=== PATIENT | male | born 1945 | race Caucasian/White ===

== ENCOUNTER 2019-05-18 11:53 | Inpatient (IN) ==
--- NOTE | 2019-05-18 12:08 | Emergency Department Note ---
Entered by Alisha Ga acting as a scribe for Chano Davis DO History of Present Illness General Chief complaint: Seizure Stated complaint: SYNCOPE, POSSIBLE SEIZURE Source: patient and family (son) History of Present Illness Onset (ago): hour(s) (just prior to arrival) Location: head (general) Pain Consistency: + other (episode) Quality: + other (unresponsiveness) Relieved By: + none Exacerbated By: + none Associated symptoms: + other (negative change in vision; negative diarrhea; negative numbness in arms or legs ); no chest pain, no fever/chills, no headaches, no nausea/vomiting, no shortness of breath and no weakness The patient is a 73-year-old male with a past medical history of diabetes, hypertension, hyperlipidemia and seizure that presents the ER for an episode of unresponsiveness that began just prior to arrival. He was sitting in the passenger seat and his son was driving when he started yelling and his whole body became tense and this lasted for about 2 minutes. He was feeling completely fine before hand. When he woke up from this he was slightly confused. His son called EMS. Upon arrival of the medics he became unresponsive again for about 45 seconds. Son notes that he is still a little confused. Patient complains of some persistent left-sided tongue pain as he believes he bit his tongue. He did have a headache before hand but that has resolved. Patient denies any headache, change in vision, fevers, chest pain, shortness of breath, nausea, vomiting, diarrhea. No other exacerbating or remitting factors. No weakness or numbness in his arms or legs. Home Medications Home Medications Medication Instructions Recorded Confirmed Type aspirin [Aspirin Low Dose] 81 mg PO DAILY 05/18/19 05/18/19 History glucos sul [id number] 0 cap PO BID 05/18/19 05/18/19 History [Glucosamine Chondroitin] lisinopril-hydrochlorothiazide 1 tab PO DAILY 05/18/19 05/18/19 History metformin 500 mg PO BID 05/18/19 05/18/19 History omeprazole 20 mg PO BID 05/18/19 05/18/19 History ropinirole 5 mg PO DIRECTED 05/18/19 05/18/19 History simvastatin 80 mg PO HS 05/18/19 05/18/19 History Allergies Allergy/AdvReac Type Severity Reaction Status Date / Time No Known Allergies Allergy Unverified 05/18/19 13:13 Past Med/Surg History Medical History Diabetes Hyperlipidemia Hypertension Seizure Family History (Updated 05/18/19 @ 13:10 by Alisha Ga) Other No pertinent family history in first degree relatives Social History Preferred Language: German Communication Ability: Effective Ratoprinter Required: No Beliefs That Will Affect Care: None Current Living Situation: Spouse Other Information That Helps Us Care for You: No Feels Safe at Home: Yes Safety Concerns: Feels Safe At This Time Smoking Status: Former smoker Do You Dip or Chew Tobacco: No ; Second Hand Exposure: No ; Tobacco Cessation Education Requested by Patient: No Hx Alcohol Use: Yes Alcohol type: beer Hx Substance Use: No Review of Systems See HPI for pertinent positives & negatives. and A total of 10 systems reviewed and were otherwise negative Physical Exam Vital Signs Vital Signs - 24 hr 05/18/19 11:53 05/18/19 12:00 05/18/19 12:04 Temperature 36.9 C Temperature Source Oral Pulse Rate 90 94 H 90 Pulse Rate from SpO2 Sensor 86 Pulse Strength Normal Respiratory Rate 21 16 20 Respiratory Effort / Characteristics Non-Labored Respiratory Depth Normal Blood Pressure 175/101 H 175/101 H 159/91 H Blood Pressure Mean 125 117 121 Pulse Oximetry 96 94 Oxygen Delivery Method Room Air Sepsis Recent Fever Within 48 Hours No Sepsis Action Taken by Nursing No Action Required 05/18/19 12:06 05/18/19 12:10 05/18/19 12:16 Temperature Temperature Source Pulse Rate 91 H 82 88 Pulse Rate from SpO2 Sensor 92 H 87 Pulse Strength Respiratory Rate 14 18 Respiratory Effort / Characteristics Respiratory Depth Blood Pressure Blood Pressure Mean Pulse Oximetry 96 95 96 Oxygen Delivery Method Room Air Sepsis Recent Fever Within 48 Hours Sepsis Action Taken by Nursing 05/18/19 12:21 05/18/19 12:28 05/18/19 12:30 Temperature Temperature Source Pulse Rate 85 82 84 Pulse Rate from SpO2 Sensor 82 81 82 Pulse Strength Respiratory Rate 17 22 15 Respiratory Effort / Characteristics Respiratory Depth Blood Pressure 146/89 H Blood Pressure Mean 112 Pulse Oximetry 96 94 97 Oxygen Delivery Method Sepsis Recent Fever Within 48 Hours Sepsis Action Taken by Nursing 05/18/19 12:43 05/18/19 12:51 05/18/19 13:00 Temperature Temperature Source Pulse Rate 85 81 84 Pulse Rate from SpO2 Sensor 84 83 85 Pulse Strength Respiratory Rate 20 20 17 Respiratory Effort / Characteristics Respiratory Depth Blood Pressure 147/84 H Blood Pressure Mean 96 Pulse Oximetry 97 95 96 Oxygen Delivery Method Sepsis Recent Fever Within 48 Hours Sepsis Action Taken by Nursing 05/18/19 13:10 Temperature Temperature Source Pulse Rate 78 Pulse Rate from SpO2 Sensor 72 Pulse Strength Respiratory Rate 17 Respiratory Effort / Characteristics Respiratory Depth Blood Pressure Blood Pressure Mean Pulse Oximetry 95 Oxygen Delivery Method Sepsis Recent Fever Within 48 Hours Sepsis Action Taken by Nursing GENERAL: Sitting up in bed, alert, disheveled wearing jeans without a shirt EYE EXAM: normal conjunctiva. PERRL and EOM's grossly intact. OROPHARYNX: no exudate, no erythema, lips, buccal mucosa, and tongue normal and mucous membranes are moist NECK: supple, no nuchal rigidity, no adenopathy, non-tender LUNGS: Clear to auscultation. Normal chest wall mechanics HEART: no murmurs, S1 normal and S2 normal ABDOMEN: abdomen soft, non-tender, normo-active bowel sounds, no masses, no rebound or guarding. BACK: Back is symmetrical on inspection and there is no deformity, no midline tenderness, no CVA tenderness. SKIN: no rashes and no bruising UPPER EXTREMITIES: upper extremities are grossly normal. LOWER EXTREMITIES: No pitting edema. NEURO EXAM: Oriented to person, place but not year, cranial nerves II-XII intact, normal speech, no weakness of arms, no weakness of legs. No drift. Finger to nose intact. Gross sensation intact. Course Course ED COURSE: Vital signs were reviewed and showed hypertension. The patients medical record was reviewed The above diagnostic studies were performed and reviewed. ED treatments and interventions as stated above. 1158: The patient was evaluated in room B3B. A complete history and physical examination was performed. 1304: Upon reevaluation, the patient is resting comfortably and feeling better. .I discussed my findings with the patient and he understands and agrees with the treatment plan. Based on the patients age, coexisting illnesses, exam and lab findings the decision to treat as an inpatient was made. The patient remained stable while under my care. 1309: The patient will be evaluated for further management by [facility] Hospitalist who accepts the patient under his service. Administered Medications Gadobutrol (Gadavist 65ml) 10 ml IV ONCE PRN PRN Reason: Interaction Checking Stop: 05/22/19 17:40 Last Admin: 05/18/19 17:41 Dose: 10 ml Documented by: [id number] Sodium Chloride (Nss 1000ml) 1,000 mls @ 75 mls/hr IV .[id number] ELSY Stop: 06/17/19 16:10 Last Admin: 05/18/19 16:17 Dose: 75 mls/hr Documented by: [id number] Insulin Aspart (Novolog Flexpen) 0 units SC ACHS ELSY Stop: 06/17/19 16:29 Last Admin: 05/18/19 18:26 Dose: Not Given Documented by: [id number] Discontinued Medications Sodium Chloride (Nss 1000ml) 1,000 mls @ 999 mls/hr IV .[id number] ELSY Stop: 05/18/19 13:15 Last Infusion: 05/18/19 13:22 Dose: 0 mls/hr Documented by: [id number] Admin: 05/18/19 12:19 Dose: 999 mls/hr Documented by: [id number] Levetiracetam 1,000 mg/ (Dextrose) 110 mls @ 440 mls/hr IV NOW STA Stop: 05/18/19 13:18 Last Infusion: 05/18/19 13:40 Dose: 0 mls/hr Documented by: [id number] Admin: 05/18/19 13:25 Dose: 440 mls/hr Documented by: [id number] Potassium Chloride (Klor-Con M20) 20 meq PO NOW STA Stop: 05/18/19 14:47 Last Admin: 05/18/19 15:00 Dose: 20 meq Documented by: [id number] Medical Decision Making Differential Diagnosis Differential diagnosis includes etiologies such as infection, hypoglycemia, electrolyte abnormalities, cardiac sources, intracerebral event, trauma, toxicologic, neurologic, as well as others were entertained. Medical Records Attestation: I reviewed the patient's medical records. Home Medications Current Medication List: was personally reviewed by me Laboratory Data Attestation: I reviewed the patient's lab results. Result diagrams: 05/18/19 12:28 05/18/19 12:28 Lab Results 05/18/19 05/18/19 05/18/19 Range/Units 12:28 12:28 12:28 WBC 6.30 (4.8-10.8) K/uL RBC 4.32 L (4.7-6.1) M/uL Hgb 13.6 L (14.0-18.0) g/dL Hct 38.9 L (42-52) % MCV 90.0 (80-100) fL MCH 31.5 (25-34) pg MCHC 35.0 (32-36) g/dL RDW Std Deviation 40.3 (36.4-46.3) fL RDW Coeff of Thee 12.3 (11.5-14.5) % Plt Count 141 (130-400) K/uL MPV 10.6 H (7.4-10.4) fL Immature Gran % (Auto) 0.6 % Neut % (Auto) 70.9 % Lymph % (Auto) 18.7 % [place] % (Auto) 7.5 % Eos % (Auto) 1.7 % Baso % (Auto) 0.6 % Immature Gran # (Auto) 0.04 H (0.00-0.02) K/uL Neut # (Auto) 4.46 (1.4-6.5) K/uL Lymph # (Auto) 1.18 L (1.2-3.4) K/uL [place] # (Auto) 0.47 (0.11-0.59) K/uL Eos # (Auto) 0.11 (0-0.5) K/uL Baso # (Auto) 0.04 (0-0.2) K/uL Sodium 140 (136-145) mmol/L Potassium 3.4 L (3.5-5.1) mmol/L Chloride 106 (98-107) mmol/L Carbon Dioxide 27 (21-32) mmol/L Anion Gap 7.0 (3-11) BUN 17 (7-18) mg/dl Creatinine 1.04 (0.6-1.4) mg/dl Est Cr Clr Drug Dosing Not Reportable Est GFR ( Amer) 83.3 Est GFR (Non-Af Amer) 71.9 BUN/Creatinine Ratio 16.1 (10-20) Glucose 132 H (70-99) mg/dl Calcium 8.8 (8.5-10.1) mg/dl Magnesium 2.1 (1.8-2.4) mg/dl Total Bilirubin 0.5 (0.2-1) mg/dl AST 23 (15-37) U/L ALT 37 (12-78) U/L Alkaline Phosphatase 81 (45-117) U/L Troponin I < 0.015 (0-0.045) ng/ml Total Protein 6.9 (6.4-8.2) gm/dl Albumin 3.7 (3.4-5.0) gm/dl Globulin 3.2 (2.5-4.0) gm/dl Albumin/Globulin Ratio 1.2 (0.9-2) Urine Color Urine Appearance (Clear) Urine pH (4.5-7.5) Ur Specific [place] (1.000-1.030) Urine Protein (Negative) Urine Glucose (UA) (Negative) Urine Ketones (Negative) Urine Blood (Negative) Urine Nitrite (Negative) Urine Bilirubin (Negative) Urine Urobilinogen (Negative) Ur Leukocyte Esterase (Negative) Urine WBC (Auto) (0-5) /hpf Urine RBC (Auto) (0-4) /hpf U Hyaline Cast (Auto) (0-5) /lpf U Epithel Cells (Auto) (0-5) /lpf Urine Bacteria (Auto) (Negative) Urine Opiates Screen (Neg) Ur Methadone, Qual (Neg) Urine Barbiturates (Neg) Ur Phencyclidine (PCP) (Neg) U Amphetamin/Meth Scrn (Neg) MDMA (Ecstasy) Screen (Neg) U Benzodiazepines Scrn (Neg) Ur Cocaine Metabolite (Neg) U Marijuana (THC) Screen (Neg) 05/18/19 05/18/19 Range/Units 12:29 12:29 WBC (4.8-10.8) K/uL RBC (4.7-6.1) M/uL Hgb (14.0-18.0) g/dL Hct (42-52) % MCV (80-100) fL MCH (25-34) pg MCHC (32-36) g/dL RDW Std Deviation (36.4-46.3) fL RDW Coeff of Thee (11.5-14.5) % Plt Count (130-400) K/uL MPV (7.4-10.4) fL Immature Gran % (Auto) % Neut % (Auto) % Lymph % (Auto) % [place] % (Auto) % Eos % (Auto) % Baso % (Auto) % Immature Gran # (Auto) (0.00-0.02) K/uL Neut # (Auto) (1.4-6.5) K/uL Lymph # (Auto) (1.2-3.4) K/uL [place] # (Auto) (0.11-0.59) K/uL Eos # (Auto) (0-0.5) K/uL Baso # (Auto) (0-0.2) K/uL Sodium (136-145) mmol/L Potassium (3.5-5.1) mmol/L Chloride (98-107) mmol/L Carbon Dioxide (21-32) mmol/L Anion Gap (3-11) BUN (7-18) mg/dl Creatinine (0.6-1.4) mg/dl Est Cr Clr Drug Dosing Est GFR ( Amer) Est GFR (Non-Af Amer) BUN/Creatinine Ratio (10-20) Glucose (70-99) mg/dl Calcium (8.5-10.1) mg/dl Magnesium (1.8-2.4) mg/dl Total Bilirubin (0.2-1) mg/dl AST (15-37) U/L ALT (12-78) U/L Alkaline Phosphatase (45-117) U/L Troponin I (0-0.045) ng/ml Total Protein (6.4-8.2) gm/dl Albumin (3.4-5.0) gm/dl Globulin (2.5-4.0) gm/dl Albumin/Globulin Ratio (0.9-2) Urine Color Yellow Urine Appearance Clear (Clear) Urine pH 7.0 (4.5-7.5) Ur Specific [place] 1.012 (1.000-1.030) Urine Protein Trace H (Negative) Urine Glucose (UA) Negative (Negative) Urine Ketones Negative (Negative) Urine Blood Negative (Negative) Urine Nitrite Negative (Negative) Urine Bilirubin Negative (Negative) Urine Urobilinogen Negative (Negative) Ur Leukocyte Esterase Negative (Negative) Urine WBC (Auto) 1-5 (0-5) /hpf Urine RBC (Auto) 0-4 (0-4) /hpf U Hyaline Cast (Auto) 1-5 (0-5) /lpf U Epithel Cells (Auto) 10-20 H (0-5) /lpf Urine Bacteria (Auto) Negative (Negative) Urine Opiates Screen Neg (Neg) Ur Methadone, Qual Neg (Neg) Urine Barbiturates Neg (Neg) Ur Phencyclidine (PCP) Neg (Neg) U Amphetamin/Meth Scrn Neg (Neg) MDMA (Ecstasy) Screen Neg (Neg) U Benzodiazepines Scrn Neg (Neg) Ur Cocaine Metabolite Neg (Neg) U Marijuana (THC) Screen Neg (Neg) Imaging Data Radiologist's Impression: Radiology results as stated below per my review and the radiologist's interpretation: SINGLE VIEW CHEST CLINICAL HISTORY: Syncope. FINDINGS: An AP, portable, upright chest radiograph is obtained. No prior studies are available for comparison at the time of dictation. The examination is degraded by portable technique, apical lordotic positioning, and patient rotation. The heart is mildly enlarged. The pulmonary vasculature is noncongested. There is mild elevation of right hemidiaphragm and bibasilar atelectasis. No airspace consolidation, large pleural effusion, or pneumothorax is seen. The skeletal structures are osteopenic. The bony thorax is grossly intact. IMPRESSION: Mild cardiac enlargement with no acute cardiopulmonary abnormality. Electronically signed by: Maximino Cheung M.D. 05/18/2019 12:[address] SCAN OF THE BRAIN WITHOUT IV CONTRAST CLINICAL HISTORY: Headache. Dizziness. COMPARISON STUDY: No priors. TECHNIQUE: Unenhanced axial CT scan of the brain is performed from the vertex to the skull base. A dose lowering technique was utilized adhering to the principles of ALARA. CT DOSE: 537.48 mGy.cm FINDINGS: Brain parenchyma: There are age-related involutional changes noting mild subcortical and periventricular microangiopathic change. There is no hemorrhage, mass effect, or evidence of acute territorial ischemia by CT criteria. Lugo- white matter differentiation is preserved. No extra-axial fluid collection is seen. Ventricles, sulci, cisterns: Prominent secondary to involutional change. Intracranial vasculature: There is atherosclerotic calcification of the cavernous carotid and vertebral arteries. Calvarium: Unremarkable. Sinuses and mastoids: The visualized paranasal sinuses are clear. The mastoid air cells are well pneumatized. Orbits: The bony orbits are grossly intact. There is a right ocular lens impla nt. IMPRESSION: There is no hemorrhage, mass effect, or evidence of acute territorial ischemia by CT criteria. Electronically signed by: Maximino Cheung M.D. 05/18/2019 12:42 PM ECG Data Attestation: I personally reviewed and interpreted this ECG as follows: Indication: + other (seizure ) Rate (beats per minute): 90 Rhythm: + sinus rhythm ECG Intervals/blocks: + Normal QT ECG Goodell: + Normal ECG Findings: + Other (poor baseline); no PVCs Blood Pressure Blood Pressure Findings: Elevated blood pressure Blood Pressure Disposition: further management by hospitalist MDM Narrative Patient is a 73-year-old male who presents the ER for 2 episodes of unresponsiveness. They were driving in the car and his son noticed him shaking/tense and screaming in the passenger seat. Patient was awake alert talking when EMS arrived and became unresponsive again. IV was established blood work was obtained. Labs show no significant leukocytosis or anemia. BMP with mild hypokalemia. LFTs bilirubin and troponin were unremarkable. EKG was nondiagnostic. Chest x-ray was unremarkable. CT head was negative. Patient has a remote history of one previous seizure about 8 to 10 years ago but was never placed on medications. His neurologic exam is completely intact. He is not oriented to year but family notes this is his baseline. Patient was given a loading dose of Keppra discussed with the hospitalist for observation due to 2 seizures under 24 hours. Patient was updated at bedside along with his sons and discussed with the hospitalist for observation. Impression & Plan Seizure, Hypokalemia, HTN (hypertension) Discharge Plan Visit Data *Final* Discharge Date/Time: 05/18/19 15:19 Chief Complaint: Seizure Stated Complaint: SYNCOPE, POSSIBLE SEIZURE ED Provider: Chano Davis Discharge Problem: Seizure, Hypokalemia, HTN (hypertension) Patient Disposition: Admitted As Inpatient Discharge Instructions Interventions: ED Discharge Assessment Last Done: 05/18/19 15:19 Discharge Problem: HTN (hypertension) Qualifiers: Hypertension type: unspecified Qualified Code(s): I10 - Essential (primary) hypertension The scribe's documentation has been prepared under my direction and personally reviewed by me in its entirety. I confirm that the note above accurately reflects all work, treatment, procedures, and medical decision making performed by me.
[2019-05-18] MEDS ORDERED: SODIUM CHLORIDE 0.9% 1000ML 1,000 ML IV SCH (12:15)
[2019-05-18 12:37] LABS: Basophils # (auto) 0.04 K/uL (0-0.2); Basophils % (auto) 0.6 %; Eosinophils # (auto) 0.11 K/uL (0-0.5); Eosinophils % (auto) 1.7 %; Hematocrit (blood only) 38.9 % (42-52); Hemoglobin 13.6 g/dL (14.0-18.0); Immature Granulocytes # (auto) 0.04 K/uL (0.00-0.02); Immature Granulocytes % (auto) 0.6 %; Lymphocytes # (auto) 1.18 K/uL (1.2-3.4); Lymphocytes % (auto) 18.7 %; Mean Corpuscular Hemoglobin 31.5 pg (25-34); Mean Platelet Volume 10.6 fL (7.4-10.4); Monocytes # (auto) 0.47 K/uL (0.11-0.59); Monocytes % (auto) 7.5 %; Neutrophils # (auto) 4.46 K/uL (1.4-6.5); Neutrophils % (auto) 70.9 %; Platelet Count 141 K/uL (130-400); RDW Coefficient of Variation 12.3 % (11.5-14.5); RDW Standard Deviation 40.3 fL (36.4-46.3); Red Blood Count 4.32 M/uL (4.7-6.1)
--- NOTE | 2019-05-18 12:44 | CT Scan Report ---
CT SCAN OF THE BRAIN WITHOUT IV CONTRAST CLINICAL HISTORY: Headache. Dizziness. COMPARISON STUDY: No priors. TECHNIQUE: Unenhanced axial CT scan of the brain is performed from the vertex to the skull base. A do se lowering technique was utilized adhering to the principles of ALARA. CT DOSE: 537.48 mGy.cm FINDINGS: Brain parenchyma: There are age-related involutional changes noting mild subcortical and periventric ular microangiopathic change. There is no hemorrhage, mass effect, or evidence of acute territorial i schemia by CT criteria. Lugo-white matter differentiation is preserved. No extra-axial fluid collecti on is seen. Ventricles, sulci, cisterns: Prominent secondary to involutional change. Intracranial vasculature: There is atherosclerotic calcification of the cavernous carotid and vertebr al arteries. Calvarium: Unremarkable. Sinuses and mastoids: The visualized paranasal sinuses are clear. The mastoid air cells are well pneu matized. Orbits: The bony orbits are grossly intact. There is a right ocular lens implant. IMPRESSION: There is no hemorrhage, mass effect, or evidence of acute territorial ischemia by CT efrain olivas. Electronically signed by: Maximino Cheung M.D. 05/18/2019 12:42 PM
--- NOTE | 2019-05-18 12:50 | XRay Report ---
SINGLE VIEW CHEST CLINICAL HISTORY: Syncope. FINDINGS: An AP, portable, upright chest radiograph is obtained. No prior studies are available for c omparison at the time of dictation. The examination is degraded by portable technique, apical lordoti c positioning, and patient rotation. The heart is mildly enlarged. The pulmonary vasculature is nonco ngested. There is mild elevation of right hemidiaphragm and bibasilar atelectasis. No airspace consol idation, large pleural effusion, or pneumothorax is seen. The skeletal structures are osteopenic. The bony thorax is grossly intact. IMPRESSION: Mild cardiac enlargement with no acute cardiopulmonary abnormality. Electronically signed by: Maximino Cheung M.D. 05/18/2019 12:48 PM
[2019-05-18 12:54] LABS: Alanine Aminotransferase 37 U/L (12-78); Albumin Level 3.7 gm/dl (3.4-5.0); Aspartate Aminotransferase 23 U/L (15-37); BUN Creatinine Ratio 16.1 (10-20); Blood Urea Nitrogen 17 mg/dl (7-18); Calcium 8.8 mg/dl (8.5-10.1); Carbon Dioxide 27 mmol/L (21-32); Chloride 106 mmol/L (98-107); Est GFR (African American) 83.3; Est GFR (Non-African American) 71.9; Glucose 132 mg/dl (70-99); Magnesium 2.1 mg/dl (1.8-2.4); Potassium 3.4 mmol/L (3.5-5.1); Sodium 140 mmol/L (136-145)
[2019-05-18 12:57] LABS: Albumin Globulin Ratio 1.2 (0.9-2); Alkaline Phosphatase 81 U/L (45-117); Bilirubin,Total 0.5 mg/dl (0.2-1); Globulin 3.2 gm/dl (2.5-4.0); Total Protein 6.9 gm/dl (6.4-8.2)
[2019-05-18 13:41] LABS: Appearance Urine Clear (Clear); Bacteria Urine Automated Negative (Negative); Bilirubin Urine Negative (Negative); Blood Urine Negative (Negative); Color Urine Yellow; Glucose Urine UA Negative (Negative); Ketones Urine Negative (Negative); Leukocyte Esterase Urine Negative (Negative); Nitrite Urine Negative (Negative); Protein Urine Trace (Negative); RBC Urine Automated 0-4 /hpf (0-4); Specific Gravity Urine 1.012 (1.000-1.030); Urobilinogen Urine Negative (Negative)
[2019-05-18 13:59] LABS: Amphetamines+Metham, Urine Neg (Neg); Barbiturates, Urine Neg (Neg); Benzodiazepine, Urine Neg (Neg); Cocaine, Urine Neg (Neg); MDMA (Ecstacy), Urine Neg (Neg); Methadone, Urine Neg (Neg); Opiate, Urine Neg (Neg); Phencyclidine, Urine Neg (Neg)
[2019-05-18] MEDS ORDERED: POTASSIUM CHLORIDE 20 MEQ TABCR PO STA (14:46)
--- NOTE | 2019-05-18 15:16 | History and Physical Report ---
DATE OF ADMISSION: 05/18/2019 CHIEF COMPLAINT: Seizures. HISTORY OF PRESENT ILLNESS: This is a 73-year-old male with history of diabetes, hypertension, hyperlipidemia, history of seizures with single episode of seizure about 8 years ago and at that time his driving license was suspended, but he was not on any medications and did not get any more seizure since then. He is from [facility]. They are going to [facility] for hunting. His grandson was driving and patient was sitting in the back of the car. His grandson heard like yawning and yelling sound, he generally does that, but it was more than usual. Seemed to be somewhat different and he looked back and he saw that his grandfather was like stiff and shaking and did not respond. The symptom lasted for couple of minutes, then after that he was confused, he called EMS and EMS came and on the way he had another episode, but shorter period of time. Now patient is back to his usual self, he is ambulating okay in the ER. Denies any headache. The patient did not felt any headache or dizziness. Denies any blurred visions. No chest pain, no shortness of breath. He gets cough on and off with phlegm. Has postnasal drip. Denies any earache, no sore throat, no difficulty swallowing. Appetite is okay. Sleeps okay. Ambulates fine. No recent weight gain or weight loss, or no night sweats. No nausea, no vomiting, no abdominal pain. Normal bowel and bladder movements. No swelling in the legs. Currently resting comfortably and hemodynamically stable. ALLERGIES: No known drug allergies. PAST MEDICAL HISTORY: As mentioned above. PAST SURGICAL HISTORY: He had cholecystectomy, tonsillectomy, carpal tunnel surgery. MEDICATIONS: Aspirin 81 mg daily, lisinopril/hydrochlorothiazide 20/25 mg p.o. daily, metformin, omeprazole 20 mg bid, ropinirole 5mg as directed., simvastatin 80 mg p.o. at bedtime. FAMILY HISTORY: Denies any significant family history. SOCIAL HISTORY: Quit smoking about 20-25 years ago. Alcohol, drinks 3 beers on and he may or may not drink another 3 beers one more day in a week. Lives with his . REVIEW OF SYMPTOMS: As per HPI. Rest of the systems negative. PHYSICAL EXAMINATION: GENERAL: The patient is alert and oriented x2, not in acute distress. VITAL SIGNS: Temperature 36.9, pulse 88, respiratory rate 21, blood pressure 175/101, oxygen 96% room air. HEENT: No pallor, no icterus. Pupils equal, round, reactive to light. Extraocular muscles intact. NECK: No JVD, no neck masses, no carotid bruits. CARDIOVASCULAR: S1, S2 heard, regular rate and rhythm, no murmur, no gallop. RESPIRATORY SYSTEM: Normal AP diameter. No accessory muscle use. No wheezing, no crackles. ABDOMEN: Soft, bowel sounds present, nontender. No distention. CENTRAL NERVOUS SYSTEM: Cranial nerves II-XII grossly intact. Power 5/5 in all extremities. No pronator drift. Coordination of movements normal. EXTREMITIES: No edema, no erythema. LABORATORY DATA: WBC 6.3, hemoglobin 13.6, hematocrit 38.9, platelets 141. Sodium 140, potassium 3.4, chloride 106, bicarbonate 27, BUN 17, creatinine 1.04, serum glucose 132, calcium 8.8, magnesium 2.1, total bilirubin 0.5, AST 23, ALT 37, alkaline phosphatase 81. Troponin I less than 0.015. Urinalysis negative. Chest x-ray, mild cardiac enlargement with no acute cardiopulmonary abnormality. CT of the head, there is no hemorrhage, mass effect, or evidence of acute territorial ischemia by CT criteria. ASSESSMENT AND PLAN: This is a 73-year-old male who presents with seizure episode. 1. Seizure episode. He had 2 episodes of seizures today. He had also episode of seizure about 8 years ago. Not on any medications. Grandson says he drinks alcohol 3 beers on and he may or may not drink one more day, so he drinks total of 3-6 beers every week, on 1 or 2 days in a week. Does not seem alcohol withdrawal. Electrolytes are okay except for potassium of 3.4, which we will replace. History of seizures about 8 years ago. In ER he was loaded with Keppra 1000 mg IV. We will continue with IV Keppra 500 b.i.d., EEG, get MRI of the head with and without contrast and also echocardiogram and carotid ultrasound. Discussed with Neurology. Monitor in the tele floor for now. IV Ativan p.r.n. for breakthrough seizures. Seizure precautions. 2. History of diabetes: Hold his metformin, place on insulin sliding scale. Follow hemoglobin A1c levels. 3. History of hyperlipidemia: Continue statin. 4. Gastroesophageal reflux disease: Continue his Protonix. 5. Hypertension: Continue his lisinopril/hydrochlorothiazide. Monitor his blood pressure. 6. Deep venous thrombosis prophylaxis, sequential compression devices for now. 7. Disposition: Admit to tele floor. Expect discharge home and follow with family doctor. No driving until seizure free for 6 months. This should be notified to DMV. Level 1 full code. MTDD
[2019-05-18] MEDS ORDERED: ONDANSETRON INJ 2 MG/ML 2 ML VIAL IV PRN (16:11)
[2019-05-18] MEDS ORDERED: POLYETHYLENE (MIRALAX) 17 GM PACK PO PRN (16:11)
[2019-05-18] MEDS ORDERED: LORazepam 1.5 MG/3 ML VIAL IV PRN (16:11)
[2019-05-18] MEDS ORDERED: NITROGLYCERIN SL 0.4 MG/TAB TAB SL PRN (16:11)
[2019-05-18] MEDS: SODIUM CHLORIDE 0.9% 1000ML 1,000 ML IV SCH (16:17)
[2019-05-18] MEDS ORDERED: GLUCOSE 10 TABS/TUBE PO PRN (16:30)
[2019-05-18] MEDS ORDERED: GLUCOSE 40% GEL 15 GM TUBE PO PRN (16:30)
[2019-05-18] MEDS ORDERED: CARBOHYDRATES FOR HYPOGLYCEMIA PO PRN (16:30)
[2019-05-18] MEDS ORDERED: GLUCAGON FOR INJ 1 MG VIAL IM PRN (16:30)
[2019-05-18] MEDS ORDERED: DEXTROSE 50% 50 ML SYRINGE IV PRN (16:30)
[2019-05-18] MEDS ORDERED: GADOBUTROL 65ML VIAL IV PRN (17:41)
--- NOTE | 2019-05-18 17:56 | Magnetic Resonance Report ---
MRI OF THE BRAIN COMBO CLINICAL HISTORY: Seizure. COMPARISON STUDY: CT of the brain dated 05/18/2019. TECHNIQUE: MRI of the brain was performed utilizing various T1 and T2-weighted sequences in the axial , sagittal, and coronal planes. Contrast-enhanced sequences were acquired following the administratio n of 10 cc of Gadavist. The examination is performed using the seizure protocol. FINDINGS: Brain parenchyma: There is age-related involutional change noting mild patchy subcortical and periven tricular microangiopathic disease. There is no hemorrhage or mass effect. Numerous prominent perivasc ular spaces are incidentally noted. There is no restricted diffusion to suggest acute ischemia. No en hancing mass lesion is identified on the postcontrast images. Lugo-white matter differentiation is pr eserved. No extra-axial fluid collection is seen. The cerebellar tonsils are normal in configuration. The hippocampi are normal and symmetric. Ventricles, sulci, and cisterns: Prominent secondary to involutional change. Pituitary and sella: Unremarkable. Intracranial vasculature: Normal flow voids are maintained at the skull base. Orbits: The bony orbits are grossly intact. Orbital contents are normal in appearance noting a right ocular lens implant. Sinuses and mastoids: Trace mucosal thickening is noted in the ethmoid sinuses. The remaining paranas al sinuses are clear. The mastoid air cells are well pneumatized. Calvarium: Unremarkable. Cervical cord: Partially visualized cervical spinal cord is normal in morphology and signal intensity . IMPRESSION: No acute intracranial abnormality. Electronically signed by: Maximino Cheung M.D. 05/18/2019 5:54 PM
[2019-05-18] MEDS: INSULIN ASPART 100 UNITS/ML 3 ML PEN SC SCH ×2 (18:26→21:11)
[2019-05-18] MEDS: ROPINIROLE HCL 5 MG TABLET PO SCH (20:13)
[2019-05-18] MEDS ORDERED: SIMVASTATIN 80 MG TAB PO SCH (21:00)
[2019-05-18] MEDS: ACETAMINOPHEN 325 MG TAB PO PRN (21:12)
[2019-05-19] MEDS: SODIUM CHLORIDE 0.9% 1000ML 1,000 ML IV SCH (05:42)
[2019-05-19 05:59] LABS: Basophils # (auto) 0.04 K/uL (0-0.2); Basophils % (auto) 0.6 %; Eosinophils # (auto) 0.09 K/uL (0-0.5); Eosinophils % (auto) 1.3 %; Hematocrit (blood only) 38.7 % (42-52); Hemoglobin 13.2 g/dL (14.0-18.0); Immature Granulocytes # (auto) 0.01 K/uL (0.00-0.02); Immature Granulocytes % (auto) 0.1 %; Lymphocytes # (auto) 1.56 K/uL (1.2-3.4); Lymphocytes % (auto) 23.1 %; Mean Corpuscular Hemoglobin 31.2 pg (25-34); Mean Corpuscular Hgb Conc 34.1 g/dL (32-36); Mean Corpuscular Volume 91.5 fL (80-100); Mean Platelet Volume 11.1 fL (7.4-10.4); Monocytes # (auto) 0.47 K/uL (0.11-0.59); Neutrophils # (auto) 4.57 K/uL (1.4-6.5); Neutrophils % (auto) 67.9 %; Platelet Count 137 K/uL (130-400); RDW Coefficient of Variation 12.6 % (11.5-14.5); RDW Standard Deviation 42.1 fL (36.4-46.3); Red Blood Count 4.23 M/uL (4.7-6.1); White Blood Count 6.74 K/uL (4.8-10.8)
[2019-05-19 06:20] LABS: BUN Creatinine Ratio 13.2 (10-20); Calcium 8.6 mg/dl (8.5-10.1); Creatinine Clr Calc Pharmacy 75.9 ml/min; Est GFR (African American) 86.3; Est GFR (Non-African American) 74.5; Magnesium 2.3 mg/dl (1.8-2.4); Potassium 3.6 mmol/L (3.5-5.1)
[2019-05-19] MEDS: INSULIN ASPART 100 UNITS/ML 3 ML PEN SC SCH ×2 (08:34→11:52)
[2019-05-19] MEDS: ROPINIROLE HCL 5 MG TABLET PO SCH (08:37)
[2019-05-19] MEDS ORDERED: PANTOprazole 40 MG TAB PO SCH (09:00)
[2019-05-19] MEDS ORDERED: ASPIRIN 81 MG ECTAB PO SCH (09:00)
[2019-05-19] MEDS ORDERED: LISINOPRIL/HCTZ 20/25MG 1 TAB PO SCH (09:00)
--- NOTE | 2019-05-19 09:01 | Hospitalist Progress Note ---
Date of Service May 19, 2019 Assessment & Plan (1) Seizure: This is a 73-year-old male who presents with seizure episode. 1. Seizure episode. He had 2 episodes of seizures yesterday. He had also had episode of seizure about 8 years ago. Not on any medications. Ivan says he drinks alcohol 3 beers on and he may or may not drink one more day, so he drinks total of 3-6 beers every week, on 1 or 2 days in a week. Does not seem alcohol withdrawal. In ER he was loaded with Keppra 1000 mg IV. We will continue with IV Keppra 500 b.i.d. - EEG and MRI of the head ordered as well as echocardiogram and carotid ultrasound - Neurology consulted. Pt to be discharged on Keppra 500 mg bid. No driving until seizure free for 6 months. DMV was notified. Discussed this with patient and his family in detail. We also do not recommend going hunting, operating firearms, or be alone in remote location. Pt needs to follow up with neurologist in next 2-3 weeks. - While inpatient IV Ativan p.r.n. for breakthrough seizures. Seizure precautions. 2. History of diabetes, well controlled: Holding his metformin, place on insulin sliding scale. Hemoglobin A1c 6.5% (05/19/2019). 3. History of hyperlipidemia: Continue statin. 4. Gastroesophageal reflux disease: Continue his Protonix. 5. Hypertension: Continue his lisinopril/hydrochlorothiazide. Cont. to monitor blood pressure. Currently acceptable. 7. Disposition: follow with primary care doctor ([facility]), and neurologist in next 2-3 weeks ([facility]). Subjective Pt is lying in bed in no acute distress, comfortable, no neurological deficits. Denies any fever, chills, chest pain, shortness of breath, abdom. pain, nausea, vomiting. Review of Systems Review of Systems: All systems reviewed & are unremarkable except as noted in HPI & below Constitutional: no fever, no chills and no fatigue Respiratory: no cough, no dyspnea and no pain on inspiration Cardiovascular: no chest pain, no dyspnea on exertion, no palpitations and no edema Gastrointestinal: no abdominal pain, no nausea and no vomiting Physical Exam Physical Exam: GENERAL: Elderly male lying in bed in acute distress. HEENT: Normocephalic, atraumatic, no pallor, no icterus. Pupils equal, round, reactive to light. Extraocular muscles intact. NECK: No JVD, no neck masses, no carotid bruits. CARDIOVASCULAR: S1, S2 heard, regular rate and rhythm, no murmur, no gallop. RESPIRATORY SYSTEM: Normal AP diameter. No accessory muscle use. No wheezing, no crackles. ABDOMEN: Soft, bowel sounds present, nontender. No distention. NEURO: Cranial nerves II-XII grossly intact. Power 5/5 in all extremities. No pronator drift. Symmetric reflexes. Downgoing toes. Wpfgnc-[id number] and ljbb-se-lalk are normal. No asymmetric sensory loss to temperature or light touch. Gait unremarkable for age. EXTREMITIES: No edema, no erythema. SKIN: warm, dry Results & Data Vital Signs (Past 12 Hours) Vital Signs Temp Pulse Resp BP Pulse Ox 05/19/19 07:17 36.4 C L 68 16 132/78 94 05/19/19 03:48 36.6 C 67 18 126/70 96 05/18/19 23:08 36.6 C 73 18 122/69 97 Laboratory Results 05/19/19 05/19/19 05/19/19 Range/Units 07:25 05:33 05:33 WBC (4.8-10.8) K/uL RBC (4.7-6.1) M/uL Hgb (14.0-18.0) g/dL Hct (42-52) % MCV (80-100) fL MCH (25-34) pg MCHC (32-36) g/dL RDW Std Deviation (36.4-46.3) fL RDW Coeff of Thee (11.5-14.5) % Plt Count (130-400) K/uL MPV (7.4-10.4) fL Immature Gran % (Auto) % Neut % (Auto) % Lymph % (Auto) % Storey % (Auto) % Eos % (Auto) % Baso % (Auto) % Immature Gran # (Auto) (0.00-0.02) K/uL Neut # (Auto) (1.4-6.5) K/uL Lymph # (Auto) (1.2-3.4) K/uL Storey # (Auto) (0.11-0.59) K/uL Eos # (Auto) (0-0.5) K/uL Baso # (Auto) (0-0.2) K/uL Sodium 139 (136-145) mmol/L Potassium 3.6 (3.5-5.1) mmol/L Chloride 106 (98-107) mmol/L Carbon Dioxide 29 (21-32) mmol/L Anion Gap 4.0 (3-11) BUN 13 (7-18) mg/dl Creatinine 1.01 (0.6-1.4) mg/dl Est Cr Clr Drug Dosing 75.9 Est GFR ( Amer) 86.3 Est GFR (Non-Af Amer) 74.5 BUN/Creatinine Ratio 13.2 (10-20) Glucose 131 H (70-99) mg/dl POC Glucose 162 H (70-99) Estimat Average Glucose Pending Hemoglobin A1c Pending Calcium 8.6 (8.5-10.1) mg/dl Magnesium 2.3 (1.8-2.4) mg/dl Total Bilirubin (0.2-1) mg/dl AST (15-37) U/L ALT (12-78) U/L Alkaline Phosphatase (45-117) U/L Troponin I (0-0.045) ng/ml Total Protein (6.4-8.2) gm/dl Albumin (3.4-5.0) gm/dl Globulin (2.5-4.0) gm/dl Albumin/Globulin Ratio (0.9-2) Urine Color Urine Appearance (Clear) Urine pH (4.5-7.5) Ur Specific [place] (1.000-1.030) Urine Protein (Negative) Urine Glucose (UA) (Negative) Urine Ketones (Negative) Urine Blood (Negative) Urine Nitrite (Negative) Urine Bilirubin (Negative) Urine Urobilinogen (Negative) Ur Leukocyte Esterase (Negative) Urine WBC (Auto) (0-5) /hpf Urine RBC (Auto) (0-4) /hpf U Hyaline Cast (Auto) (0-5) /lpf U Epithel Cells (Auto) (0-5) /lpf Urine Bacteria (Auto) (Negative) Urine Opiates Screen (Neg) Ur Methadone, Qual (Neg) Urine Barbiturates (Neg) Ur Phencyclidine (PCP) (Neg) U Amphetamin/Meth Scrn (Neg) MDMA (Ecstasy) Screen (Neg) U Benzodiazepines Scrn (Neg) Ur Cocaine Metabolite (Neg) U Marijuana (THC) Screen (Neg) 05/19/19 05/18/19 05/18/19 Range/Units 05:33 20:48 15:57 WBC 6.74 (4.8-10.8) K/uL RBC 4.23 L (4.7-6.1) M/uL Hgb 13.2 L (14.0-18.0) g/dL Hct 38.7 L (42-52) % MCV 91.5 (80-100) fL MCH 31.2 (25-34) pg MCHC 34.1 (32-36) g/dL RDW Std Deviation 42.1 (36.4-46.3) fL RDW Coeff of Thee 12.6 (11.5-14.5) % Plt Count 137 (130-400) K/uL MPV 11.1 H (7.4-10.4) fL Immature Gran % (Auto) 0.1 % Neut % (Auto) 67.9 % Lymph % (Auto) 23.1 % Storey % (Auto) 7.0 % Eos % (Auto) 1.3 % Baso % (Auto) 0.6 % Immature Gran # (Auto) 0.01 (0.00-0.02) K/uL Neut # (Auto) 4.57 (1.4-6.5) K/uL Lymph # (Auto) 1.56 (1.2-3.4) K/uL Storey # (Auto) 0.47 (0.11-0.59) K/uL Eos # (Auto) 0.09 (0-0.5) K/uL Baso # (Auto) 0.04 (0-0.2) K/uL Sodium (136-145) mmol/L Potassium (3.5-5.1) mmol/L Chloride (98-107) mmol/L Carbon Dioxide (21-32) mmol/L Anion Gap (3-11) BUN (7-18) mg/dl Creatinine (0.6-1.4) mg/dl Est Cr Clr Drug Dosing Est GFR ( Amer) Est GFR (Non-Af Amer) BUN/Creatinine Ratio (10-20) Glucose (70-99) mg/dl POC Glucose 149 H 121 H (70-99) Estimat Average Glucose Hemoglobin A1c Calcium (8.5-10.1) mg/dl Magnesium (1.8-2.4) mg/dl Total Bilirubin (0.2-1) mg/dl AST (15-37) U/L ALT (12-78) U/L Alkaline Phosphatase (45-117) U/L Troponin I (0-0.045) ng/ml Total Protein (6.4-8.2) gm/dl Albumin (3.4-5.0) gm/dl Globulin (2.5-4.0) gm/dl Albumin/Globulin Ratio (0.9-2) Urine Color Urine Appearance (Clear) Urine pH (4.5-7.5) Ur Specific [place] (1.000-1.030) Urine Protein (Negative) Urine Glucose (UA) (Negative) Urine Ketones (Negative) Urine Blood (Negative) Urine Nitrite (Negative) Urine Bilirubin (Negative) Urine Urobilinogen (Negative) Ur Leukocyte Esterase (Negative) Urine WBC (Auto) (0-5) /hpf Urine RBC (Auto) (0-4) /hpf U Hyaline Cast (Auto) (0-5) /lpf U Epithel Cells (Auto) (0-5) /lpf Urine Bacteria (Auto) (Negative) Urine Opiates Screen (Neg) Ur Methadone, Qual (Neg) Urine Barbiturates (Neg) Ur Phencyclidine (PCP) (Neg) U Amphetamin/Meth Scrn (Neg) MDMA (Ecstasy) Screen (Neg) U Benzodiazepines Scrn (Neg) Ur Cocaine Metabolite (Neg) U Marijuana (THC) Screen (Neg) 05/18/19 05/18/19 05/18/19 Range/Units 12:29 12:29 12:28 WBC (4.8-10.8) K/uL RBC (4.7-6.1) M/uL Hgb (14.0-18.0) g/dL Hct (42-52) % MCV (80-100) fL MCH (25-34) pg MCHC (32-36) g/dL RDW Std Deviation (36.4-46.3) fL RDW Coeff of Thee (11.5-14.5) % Plt Count (130-400) K/uL MPV (7.4-10.4) fL Immature Gran % (Auto) % Neut % (Auto) % Lymph % (Auto) % Storey % (Auto) % Eos % (Auto) % Baso % (Auto) % Immature Gran # (Auto) (0.00-0.02) K/uL Neut # (Auto) (1.4-6.5) K/uL Lymph # (Auto) (1.2-3.4) K/uL Storey # (Auto) (0.11-0.59) K/uL Eos # (Auto) (0-0.5) K/uL Baso # (Auto) (0-0.2) K/uL Sodium (136-145) mmol/L Potassium (3.5-5.1) mmol/L Chloride (98-107) mmol/L Carbon Dioxide (21-32) mmol/L Anion Gap (3-11) BUN (7-18) mg/dl Creatinine (0.6-1.4) mg/dl Est Cr Clr Drug Dosing Est GFR ( Amer) Est GFR (Non-Af Amer) BUN/Creatinine Ratio (10-20) Glucose (70-99) mg/dl POC Glucose (70-99) Estimat Average Glucose Hemoglobin A1c Calcium (8.5-10.1) mg/dl Magnesium (1.8-2.4) mg/dl Total Bilirubin (0.2-1) mg/dl AST (15-37) U/L ALT (12-78) U/L Alkaline Phosphatase (45-117) U/L Troponin I < 0.015 (0-0.045) ng/ml Total Protein (6.4-8.2) gm/dl Albumin (3.4-5.0) gm/dl Globulin (2.5-4.0) gm/dl Albumin/Globulin Ratio (0.9-2) Urine Color Yellow Urine Appearance Clear (Clear) Urine pH 7.0 (4.5-7.5) Ur Specific [place] 1.012 (1.000-1.030) Urine Protein Trace H (Negative) Urine Glucose (UA) Negative (Negative) Urine Ketones Negative (Negative) Urine Blood Negative (Negative) Urine Nitrite Negative (Negative) Urine Bilirubin Negative (Negative) Urine Urobilinogen Negative (Negative) Ur Leukocyte Esterase Negative (Negative) Urine WBC (Auto) 1-5 (0-5) /hpf Urine RBC (Auto) 0-4 (0-4) /hpf U Hyaline Cast (Auto) 1-5 (0-5) /lpf U Epithel Cells (Auto) 10-20 H (0-5) /lpf Urine Bacteria (Auto) Negative (Negative) Urine Opiates Screen Neg (Neg) Ur Methadone, Qual Neg (Neg) Urine Barbiturates Neg (Neg) Ur Phencyclidine (PCP) Neg (Neg) U Amphetamin/Meth Scrn Neg (Neg) MDMA (Ecstasy) Screen Neg (Neg) U Benzodiazepines Scrn Neg (Neg) Ur Cocaine Metabolite Neg (Neg) U Marijuana (THC) Screen Neg (Neg) 05/18/19 05/18/19 Range/Units 12:28 12:28 WBC 6.30 (4.8-10.8) K/uL RBC 4.32 L (4.7-6.1) M/uL Hgb 13.6 L (14.0-18.0) g/dL Hct 38.9 L (42-52) % MCV 90.0 (80-100) fL MCH 31.5 (25-34) pg MCHC 35.0 (32-36) g/dL RDW Std Deviation 40.3 (36.4-46.3) fL RDW Coeff of Thee 12.3 (11.5-14.5) % Plt Count 141 (130-400) K/uL MPV 10.6 H (7.4-10.4) fL Immature Gran % (Auto) 0.6 % Neut % (Auto) 70.9 % Lymph % (Auto) 18.7 % Storey % (Auto) 7.5 % Eos % (Auto) 1.7 % Baso % (Auto) 0.6 % Immature Gran # (Auto) 0.04 H (0.00-0.02) K/uL Neut # (Auto) 4.46 (1.4-6.5) K/uL Lymph # (Auto) 1.18 L (1.2-3.4) K/uL Storey # (Auto) 0.47 (0.11-0.59) K/uL Eos # (Auto) 0.11 (0-0.5) K/uL Baso # (Auto) 0.04 (0-0.2) K/uL Sodium 140 (136-145) mmol/L Potassium 3.4 L (3.5-5.1) mmol/L Chloride 106 (98-107) mmol/L Carbon Dioxide 27 (21-32) mmol/L Anion Gap 7.0 (3-11) BUN 17 (7-18) mg/dl Creatinine 1.04 (0.6-1.4) mg/dl Est Cr Clr Drug Dosing Not Reportable Est GFR ( Amer) 83.3 Est GFR (Non-Af Amer) 71.9 BUN/Creatinine Ratio 16.1 (10-20) Glucose 132 H (70-99) mg/dl POC Glucose (70-99) Estimat Average Glucose Hemoglobin A1c Calcium 8.8 (8.5-10.1) mg/dl Magnesium 2.1 (1.8-2.4) mg/dl Total Bilirubin 0.5 (0.2-1) mg/dl AST 23 (15-37) U/L ALT 37 (12-78) U/L Alkaline Phosphatase 81 (45-117) U/L Troponin I (0-0.045) ng/ml Total Protein 6.9 (6.4-8.2) gm/dl Albumin 3.7 (3.4-5.0) gm/dl Globulin 3.2 (2.5-4.0) gm/dl Albumin/Globulin Ratio 1.2 (0.9-2) Urine Color Urine Appearance (Clear) Urine pH (4.5-7.5) Ur Specific [place] (1.000-1.030) Urine Protein (Negative) Urine Glucose (UA) (Negative) Urine Ketones (Negative) Urine Blood (Negative) Urine Nitrite (Negative) Urine Bilirubin (Negative) Urine Urobilinogen (Negative) Ur Leukocyte Esterase (Negative) Urine WBC (Auto) (0-5) /hpf Urine RBC (Auto) (0-4) /hpf U Hyaline Cast (Auto) (0-5) /lpf U Epithel Cells (Auto) (0-5) /lpf Urine Bacteria (Auto) (Negative) Urine Opiates Screen (Neg) Ur Methadone, Qual (Neg) Urine Barbiturates (Neg) Ur Phencyclidine (PCP) (Neg) U Amphetamin/Meth Scrn (Neg) MDMA (Ecstasy) Screen (Neg) U Benzodiazepines Scrn (Neg) Ur Cocaine Metabolite (Neg) U Marijuana (THC) Screen (Neg) Medications Administered Current Inpatient Medications Acetaminophen (Tylenol) 650 mg PO Q4H PRN PRN Reason: Pain or Fever Stop: 06/17/19 16:10 Last Admin: 05/18/19 21:12 Dose: 650 mg Documented by: Aspirin (Ecotrin Ectab) 81 mg PO DAILY ELSY Stop: 06/18/19 08:59 Last Admin: 05/19/19 08:36 Dose: 81 mg Documented by: Dextrose (Dextrose 50%) 25 - 50 ml IV UD PRN; Protocol PRN Reason: Hypoglycemia Protocol Stop: 06/17/19 16:29 Gadobutrol (Gadavist 65ml) 10 ml IV ONCE PRN PRN Reason: Interaction Checking Stop: 05/22/19 17:40 Last Admin: 05/18/19 17:41 Dose: 10 ml Documented by: Glucagon (Glucagen) 1 mg IM UD PRN; Protocol PRN Reason: Hypoglycemia Protocol Stop: 06/17/19 16:29 Glucose (Glucose 40%) 15 - 30 gm PO UD PRN; Protocol PRN Reason: Hypoglycemia Protocol Stop: 06/17/19 16:29 Glucose (Dex4 Glucose) 4 - 8 tabs PO UD PRN; Protocol PRN Reason: Hypoglycemia Protocol Stop: 06/17/19 16:29 Lisinopril/HCTZ (Prinzide 20/25mg) 1 tab PO DAILY ELSY Stop: 06/18/19 08:59 Sodium Chloride (Nss 1000ml) 1,000 mls @ 75 mls/hr IV [id number] ELSY Stop: 06/17/19 16:10 Last Admin: 05/19/19 05:42 Dose: 75 mls/hr Documented by: Levetiracetam 500 mg/ Dextrose 105 mls @ 440 mls/hr IV BID ELSY Stop: 06/17/19 20:59 Last Admin: 05/19/19 08:35 Dose: 440 mls/hr Documented by: Lorazepam (Ativan) 1.5 mg in 3 mls @ 3 mls/min IV Q2H PRN PRN Reason: Breakthrough Seizures Stop: 06/17/19 16:10 Insulin Aspart (Novolog Flexpen) 0 units SC ACHS ELSY Stop: 06/17/19 16:29 Last Admin: 05/19/19 08:34 Dose: Not Given Documented by: Miscellaneous (Carbohydrates For Hypoglycemia) 15 - 30 gm PO UD PRN PRN Reason: Hypoglycemia Treatment Stop: 06/17/19 16:29 Nitroglycerin (Nitrostat) 0.4 mg SL UD PRN PRN Reason: Chest Pain Stop: 06/17/19 16:10 Ondansetron HCl (Zofran) 4 mg IV Q6H PRN PRN Reason: Nausea Stop: 06/17/19 16:10 Pantoprazole Sodium (Protonix) 40 mg PO DAILY [facility]; Protocol Stop: 06/18/19 08:59 Last Admin: 05/19/19 08:36 Dose: 40 mg Documented by: Polyethylene Glycol (Miralax Powder Packet) 17 gm PO DAILY PRN PRN Reason: Constipation Stop: 06/17/19 16:10 Ropinirole HCl (Requip) 5 mg PO BID [facility] Stop: 06/17/19 20:59 Last Admin: 05/19/19 08:37 Dose: 5 mg Documented by: Simvastatin (Zocor) 80 mg PO HS [facility] Stop: 06/17/19 20:59 Last Admin: 05/18/19 20:13 Dose: 80 mg Documented by:
[2019-05-19] MEDS: ACETAMINOPHEN 325 MG TAB PO PRN (09:05)
--- NOTE | 2019-05-19 09:31 | Ultrasound Report ---
US carotid doppler BI HISTORY: Mental status change vascular disease? seizures COMPARISON: None. TECHNIQUE: Real-time, grayscale, and color Doppler sonography of the carotid arteries was performed. Imaging reviewed in the transverse and longitudinal planes. All measurements were calculated based on NASCET criteria. FINDINGS: Antegrade flow is seen in the bilateral vertebral arteries. The brachial pressures are hemodynamically similar. Moderate plaque summation bilaterally The peak systolic velocity within the right ICA is 60. The right systolic ratio is 2.1. The peak systolic velocity within the left ICA is 54. The left systolic ratio is 0.9. IMPRESSION: No hemodynamically significant stenosis seen within the carotid arteries. Moderate plaque formation b ilaterally. 50% narrowing of the external carotid arteries bilaterally. The above report was generated using voice recognition software. It may contain grammatical, syntax or spelling errors. Electronically signed by: Calderon Broussard M.D. 05/19/2019 9:30 AM
--- NOTE | 2019-05-19 12:27 | Consultation Report ---
DATE: 05/19/2019 REASON FOR CONSULTATION: Seizure. HISTORY OF PRESENT ILLNESS: The patient is a 73-year-old right-handed male who had a seizure which by report was unprovoked approximately 9 years ago. I am assuming that the workup at that time was normal. There was no alcohol withdrawal or etiologic medications that the patient is aware of. Yesterday, he was in his state of usual health. He had slept well, woke up at 5:00 a.m. and got ready to go with family to hunting in [facility]. He had not eaten breakfast and had taken his diabetes medications, but that was his habit not to eat regularly. Then he had stopped at [facility] and gotten back in the car when his grandson noticed him to have a generalized tonic-clonic seizure lasting several minutes. Thereafter, the patient was confused. He bit his tongue. On the way to the hospital, had a second episode, but of shorter duration. The patient is otherwise well. Only medication changes that were recently included reduction in the dose of statin. He drinks probably once a week 3 beers. No relative or absolute alcohol withdrawal. He has been otherwise well. Weight has been stable. No associated headache, no prior history of stroke or transient ischemic attack. No postictal weakness. PAST MEDICAL HISTORY: Diabetes, hypertension, hyperlipidemia, history of single seizure. PAST SURGICAL HISTORY: Cholecystectomy, tonsillectomy, carpal tunnel surgery. SOCIAL HISTORY: Stopped smoking 25 years ago. Alcohol as above. Lives with . MEDICATIONS: Prior to admission, aspirin, lisinopril/HCTZ 20/25, metformin, omeprazole, ropinirole 5 mg as directed, and simvastatin. LABORATORY DATA: White count on admission 6.3, H&H 13.6/38.9, platelet count 141. Sodium 140, potassium 3.4, BUN and creatinine 17/1, blood sugar 132, point of care glucose 149, calcium 8.8, magnesium 2.1. Urinalysis notable for trace protein. Tox screen negative. Carotid ultrasound, no significant stenosis, narrowing of the bilateral external carotid 50%. MRI of the brain, which I have reviewed with and without contrast, no acute abnormality, age-related mild microvascular disease. Echo and EEG are pending. PHYSICAL EXAMINATION: VITAL SIGNS: 132/78, 68, 16, 36.4. GENERAL: The patient is awake and alert, oriented x3. Normal speech and language. Affect appropriate. HEENT: Pupils are equal, round and reactive to light. The optic nerves are unremarkable. There is some small laceration in the left anterior tongue. HEAD: Normocephalic, atraumatic. HEART: Regular rate and rhythm. LUNGS: Clear. ABDOMEN: Protuberant. NEUROLOGIC: Pupils are equal. Optic nerves difficult to visualize. Normal tejada, motility, facial sensation and symmetry. Flattening of the right nasolabial fold. Motor 5/5, no drift. Normal rapid alternating movements. Symmetric reflexes. Downgoing toes. Ohyqgx-un-ysal and gmfj-vx-bdzz are normal. No asymmetric sensory loss to temperature or light touch. Gait is unremarkable for age. IMPRESSION: History of a single seizure 9 years ago, recurrent seizure x2 yesterday. No obvious provocation such as metabolic abnormality, alcohol withdrawal, hypoglycemia. This patient needs to be treated with anticonvulsants regardless of the results of the EEG. Likely, etiology in someone this age is vascular, although we see no evidence of large vessel ischemic changes. PLAN: Keppra 500 mg b.i.d., will need a level probably in about 10 days to 2 weeks. The patient may not drive for 6 months. I have spoken with Dr. Reinoso and she will fill out the initial reporting form. The patient indicates that it will be a hardship for him not to be able to drive. I did try to explain that this was law of the State and it was reasonable one to give a period of time of observation to see if the patient would be seizure free. We spoke of avoiding height operating heavy or dangerous machinery, bathing alone, swimming alone. I did indicate to him if he were to have another seizure that 911 should be called. He needs to see neurology in 2-3 weeks. He is from outside the area. A reasonable approach would be if he cannot to see neurology in his area to see myself in the office in 2-3 weeks and then follow up in the [facility] with neurology and primary care. We did speak about side effects of Keppra including potential mild sedation as well as irritability. His daughter called while we were speaking and I explained this to her as well. Additionally, the patient is planning on going hunting today. I indicated to him that he should not be currently operating a gun. I would recommend that he not go hunting. The area where he is planning on doing so is relatively remote. If he insists on doing so, he should not be hunting alone and certainly should not be using a fire. Also, suggested to him that due to the remote weakness if an ambulance needed to be called, it may take a prolonged period of time to arrive. I have no objection to the patient's discharge today.
--- NOTE | 2019-05-19 13:09 | Electroencephalogram ---
EEG Procedure Note Date of Service May 19, 2019 Start / End Times Start Time: 12:12 End Time: 12:[address] Mensah History A 73 year old male with possible seizure. EEG performed for evaluation of epileptiform activity. Home Medication List Home Medications Medication Instructions Recorded Confirmed Type aspirin [Aspirin Low Dose] 81 mg PO DAILY 05/18/19 05/18/19 History glucos sul [id number] 0 cap PO BID 05/18/19 05/18/19 History [Glucosamine Chondroitin] lisinopril-hydrochlorothiazide 1 tab PO DAILY 05/18/19 05/18/19 History metformin 500 mg PO BID 05/18/19 05/18/19 History omeprazole 20 mg PO BID 05/18/19 05/18/19 History ropinirole 5 mg PO DIRECTED 05/18/19 05/18/19 History simvastatin 80 mg PO HS 05/18/19 05/18/19 History Inpatient Medication List Acetaminophen (Tylenol) 650 mg PO Q4H PRN PRN Reason: Pain or Fever Stop: 06/17/19 16:10 Last Admin: 05/19/19 09:05 Dose: 650 mg Documented by: [id number] Admin: 05/18/19 21:12 Dose: 650 mg Documented by: [id number] Aspirin (Ecotrin Ectab) 81 mg PO DAILY [facility] Stop: 06/18/19 08:59 Last Admin: 05/19/19 08:36 Dose: 81 mg Documented by: [id number] Gadobutrol (Gadavist 65ml) 10 ml IV ONCE PRN PRN Reason: Interaction Checking Stop: 05/22/19 17:40 Last Admin: 05/18/19 17:41 Dose: 10 ml Documented by: [id number] Lisinopril/HCTZ (Prinzide 20/25mg) 1 tab PO DAILY [facility] Stop: 06/18/19 08:59 Last Admin: 05/19/19 09:37 Dose: 1 tab Documented by: [id number] Sodium Chloride (Nss 1000ml) 1,000 mls @ 75 mls/hr IV .[id number] ELSY Stop: 06/17/19 16:10 Last Admin: 05/19/19 05:42 Dose: 75 mls/hr Documented by: [id number] Infusion: 05/19/19 05:37 Dose: 75 mls/hr Documented by: [id number] Admin: 05/18/19 16:17 Dose: 75 mls/hr Documented by: [id number] Levetiracetam 500 mg/ Dextrose 105 mls @ 440 mls/hr IV BID ELSY Stop: 06/17/19 20:59 Last Infusion: 05/19/19 09:05 Dose: 0 mls/hr Documented by: [id number] Admin: 05/19/19 08:35 Dose: 440 mls/hr Documented by: [id number] Infusion: 05/18/19 21:00 Dose: 0 mls/hr Documented by: [id number] Admin: 05/18/19 20:13 Dose: 440 mls/hr Documented by: [id number] Insulin Aspart (Novolog Flexpen) 0 units SC ACHS ELSY Stop: 06/17/19 16:29 Last Admin: 05/19/19 11:52 Dose: Not Given Documented by: [id number] Cosigned by: [id number] Admin: 05/19/19 08:34 Dose: Not Given Documented by: [id number] Cosigned by: [id number] Admin: 05/18/19 21:11 Dose: 1 units Documented by: [id number] Cosigned by: [id number] Admin: 05/18/19 18:26 Dose: Not Given Documented by: [id number] Pantoprazole Sodium (Protonix) 40 mg PO DAILY ELSY; Protocol Stop: 06/18/19 08:59 Last Admin: 05/19/19 08:36 Dose: 40 mg Documented by: [id number] Ropinirole HCl (Requip) 5 mg PO BID ELSY Stop: 06/17/19 20:59 Last Admin: 05/19/19 08:37 Dose: 5 mg Documented by: [id number] Admin: 05/18/19 20:13 Dose: 5 mg Documented by: [id number] Simvastatin (Zocor) 80 mg PO HS ELSY Stop: 06/17/19 20:59 Last Admin: 05/18/19 20:13 Dose: 80 mg Documented by: [id number] Discontinued Medications Sodium Chloride (Nss 1000ml) 1,000 mls @ 999 mls/hr IV .Q1H1M ELSY Stop: 05/18/19 13:15 Last Infusion: 05/18/19 13:22 Dose: 0 mls/hr Documented by: [id number] Admin: 05/18/19 12:19 Dose: 999 mls/hr Documented by: [id number] Levetiracetam 1,000 mg/ (Dextrose) 110 mls @ 440 mls/hr IV NOW STA Stop: 05/18/19 13:18 Last Infusion: 05/18/19 13:40 Dose: 0 mls/hr Documented by: [id number] Admin: 05/18/19 13:25 Dose: 440 mls/hr Documented by: [id number] Potassium Chloride (Klor-Con M20) 20 meq PO NOW STA Stop: 05/18/19 14:47 Last Admin: 05/18/19 15:00 Dose: 20 meq Documented by: [id number] Description This is a 21 electrode EEG with a single channel dedicated to limited EKG. The electrodes were placed in accordance with the International 10-20 system. REPORT: At the onset of the EEG, the patient is awake. The background activity consist of 9-10 Hz, persistent, posteriorly dominant, moderate amplitude, symmetric and rhythmic activity that is reactive to eye opening. Anteriorly, it consist of a mixture of low voltage indeterminate activity and 15-25 Hz, persistent, low amplitude, symmetric and rhythmic activity. Stepwise intermittent photic stimulation does not induce any abnormalities. Drowsiness is characterized by low amplitude mixed frequency activity, roving eye movements, and decreased eye blinking and muscle artifact. IMPRESSION: This is a normal awake and drowsy EEG. There is no evidence of focal slowing or epileptiform activity.
--- NOTE | 2019-05-19 15:26 | Discharge Summary ---
Date of Service May 19, 2019 Admission HPI Per Admitting Provider This is a 73-year-old male with history of diabetes, hypertension, hyperlipidemia, history of seizures with single episode of seizure about 8 years ago and at that time his driving license was suspended, but he was not on any medications and did not get any more seizure since then. He is from [facility]. They are going to [facility] for hunting. His grandson was driving and patient was sitting in the back of the car. His grandson heard like yawning and yelling sound, he generally does that, but it was more than usual. Seemed to be somewhat different and he looked back and he saw that his grandfather was like stiff and shaking and did not respond. The symptom lasted for couple of minutes, then after that he was confused, he called EMS and EMS came and on the way he had another episode, but shorter period of time. Now patient is back to his usual self, he is ambulating okay in the ER. Denies any headache. The patient did not felt any headache or dizziness. Denies any blurred visions. No chest pain, no shortness of breath. He gets cough on and off with phlegm. Has postnasal drip. Denies any earache, no sore throat, no difficulty swallowing. Appetite is okay. Sleeps okay. Ambulates fine. No recent weight gain or weight loss, or no night sweats. No nausea, no vomiting, no abdominal pain. Normal bowel and bladder movements. No swelling in the legs. Currently resting comfortably and hemodynamically stable. Admission Exam Per Admitting Provider GENERAL: The patient is alert and oriented x2, not in acute distress. VITAL SIGNS: Temperature 36.9, pulse 88, respiratory rate 21, blood pressure 175/101, oxygen 96% room air. HEENT: No pallor, no icterus. Pupils equal, round, reactive to light. Extraocular muscles intact. NECK: No JVD, no neck masses, no carotid bruits. CARDIOVASCULAR: S1, S2 heard, regular rate and rhythm, no murmur, no gallop. RESPIRATORY SYSTEM: Normal AP diameter. No accessory muscle use. No wheezing, no crackles. ABDOMEN: Soft, bowel sounds present, nontender. No distention. CENTRAL NERVOUS SYSTEM: Cranial nerves II-XII grossly intact. Power 5/5 in all extremities. No pronator drift. Coordination of movements normal. EXTREMITIES: No edema, no erythema. Principal Diagnosis Seizure Discharge Exam GENERAL: Elderly male lying in bed in acute distress. HEENT: Normocephalic, atraumatic, no pallor, no icterus. Pupils equal, round, reactive to light. Extraocular muscles intact. NECK: No JVD, no neck masses, no carotid bruits. CARDIOVASCULAR: S1, S2 heard, regular rate and rhythm, no murmur, no gallop. RESPIRATORY SYSTEM: Normal AP diameter. No accessory muscle use. No wheezing, no crackles. ABDOMEN: Soft, bowel sounds present, nontender. No distention. NEURO: Cranial nerves II-XII grossly intact. Power 5/5 in all extremities. No pronator drift. Symmetric reflexes. Downgoing toes. [id number] and sbml-[id number] are normal. No asymmetric sensory loss to temperature or light touch. Gait unremarkable for age. EXTREMITIES: No edema, no erythema. SKIN: warm, dry Discharge Data Allergies Allergy/AdvReac Type Severity Reaction Status Date / Time No Known Allergies Allergy Unverified 05/18/19 13:13 Consultations 05/18/19 13:08 ED Decision to Admit Stat 05/18/19 16:11 Consult Case Management - Discharge Planning Routine Consult Neurology Routine Ordered Studies 05/18/19 12:04 CT head/brain wo con Stat FINDINGS: Brain parenchyma: There are age-related involutional changes noting mild subcortical and periventricular microangiopathic change. There is no hemorrhage, mass effect, or evidence of acute territorial ischemia by CT criteria. Lugo- white matter differentiation is preserved. No extra-axial fluid collection is seen. Ventricles, sulci, cisterns: Prominent secondary to involutional change. Intracranial vasculature: There is atherosclerotic calcification of the cavernous carotid and vertebral arteries. Calvarium: Unremarkable. Sinuses and mastoids: The visualized paranasal sinuses are clear. The mastoid air cells are well pneumatized. Orbits: The bony orbits are grossly intact. There is a right ocular lens implant. IMPRESSION: There is no hemorrhage, mass effect, or evidence of acute territorial ischemia by CT criteria. 05/18/19 16:11 MR brain seizure wo/w con Routine FINDINGS: Brain parenchyma: There is age-related involutional change noting mild patchy subcortical and periventricular microangiopathic disease. There is no hemorrhage or mass effect. Numerous prominent perivascular spaces are incidentally noted. There is no restricted diffusion to suggest acute ischemia. No enhancing mass lesion is identified on the postcontrast images. Lugo-white matter differentiation is preserved. No extra-axial fluid collection is seen. The cerebellar tonsils are normal in configuration. The hippocampi are normal and symmetric. Ventricles, sulci, and cisterns: Prominent secondary to involutional change. Pituitary and sella: Unremarkable. Intracranial vasculature: Normal flow voids are maintained at the skull base. Orbits: The bony orbits are grossly intact. Orbital contents are normal in appearance noting a right ocular lens implant. Sinuses and mastoids: Trace mucosal thickening is noted in the ethmoid sinuses. The remaining paranasal sinuses are clear. The mastoid air cells are well pneumatized. Calvarium: Unremarkable. Cervical cord: Partially visualized cervical spinal cord is normal in morphology and signal intensity. IMPRESSION: No acute intracranial abnormality. 05/19/19 16:11 US carotid doppler BI Routine FINDINGS: Antegrade flow is seen in the bilateral vertebral arteries. The brachial pressures are hemodynamically similar. Moderate plaque summation bilaterally The peak systolic velocity within the right ICA is 60. The right systolic ratio is 2.1. The peak systolic velocity within the left ICA is 54. The left systolic ratio is 0.9. IMPRESSION: No hemodynamically significant stenosis seen within the carotid arteries. Moderate plaque formation bilaterally. 50% narrowing of the external carotid arteries bilaterally. Echo (05/19/2019) The left ventricle is normal in size. EF 55 to 60%. The right ventricle systolic function is normal. The left atrial size is normal. Right atrial size is normal. There is mild tricuspid regurgitation. Grade 1 diastolic dysfunction. No ASD detected, PFO not assessed. EEG (05/19/2019) REPORT: At the onset of the EEG, the patient is awake. The background activity consist of 9-10 Hz, persistent, posteriorly dominant, moderate amplitude, symmetric and rhythmic activity that is reactive to eye opening. Anteriorly, it consist of a mixture of low voltage indeterminate activity and 15-25 Hz, persistent, low amplitude, symmetric and rhythmic activity. Stepwise intermittent photic stimulation does not induce any abnormalities. Drowsiness is characterized by low amplitude mixed frequency activity, roving eye movements, and decreased eye blinking and muscle artifact. IMPRESSION: This is a normal awake and drowsy EEG. There is no evidence of focal slowing or epileptiform activity. Hospital Course (1) Seizure: This is a 73-year-old male who presents with seizure episode. 1. Seizure episode. He had 2 episodes of seizures yesterday. He had also had episode of seizure about 8 years ago. Not on any medications. Ivan says he drinks alcohol 3 beers on and he may or may not drink one more day, so he drinks total of 3-6 beers every week, on 1 or 2 days in a week. Does not seem alcohol withdrawal. In ER he was loaded with Keppra 1000 mg IV. We will continue with IV Keppra 500 b.i.d. - EEG (no epileptiform activity , see above for more detail) and MRI of the head (no acute findings, see above for more detail) ordered as well as echocardiogram and carotid ultrasound (see results above for more detail) - Neurology consulted. Pt to be discharged on Keppra 500 mg bid. No driving until seizure free for 6 months. DMV was notified. Discussed this with patient and his family in detail. We also do not recommend going hunting, operating firearms, or be alone in remote location. Pt needs to follow up with neurologist in next 2-3 weeks. 2. History of diabetes, well controlled: Holding his metformin, place on insulin sliding scale. Hemoglobin A1c 6.5% (05/19/2019). 3. History of hyperlipidemia: Continue statin. 4. Gastroesophageal reflux disease: Continue his Protonix. 5. Hypertension: Continue his lisinopril/hydrochlorothiazide. Cont. to monitor blood pressure. Currently acceptable. Disposition: follow with primary care doctor ([facility]), and neurologist in next 2-3 weeks ([facility]). Total Time Total Time Spent Total Time Spent (In Minutes): 40 Total Time Includes: Examination of the Patient, Discharge Planning, Medication Reconciliation and Communication With Other Providers Discharge Plan Discharge Items Patient Disposition: Home - Self-Care Reason For Visit: SEIZURE Discharge Diagnosis: Seizure Activity: As commented below Non-emergency contact: Primary Care Provider and Neurologist Call non-emergency contact if: you have any medication questions and your symptoms worsen Follow-up/Referrals: PCP,NO [Primary Care Provider] - Diet: Carb Consistent or DM2 and Heart Healthy Addtl Attending Provider Instructions: We started you on a new medication, Keppra 500mg, take it twice a day. As you discussed with neurologist, this medication can make you drowsy and irritable. It is crucial that you follow-up with neurologist in the next 2 to 3 weeks. If you cannot see a neurologist in your area, please follow-up here with Dr. Ramirez who saw you in the hospital today. You should also follow-up with your primary care provider within a week of discharge. As was discussed with you, DO NOT drive a vehicle for next 6 months. You should also not operate any heavy machinery, or use firearms. We strongly advise you not to go hunting in the next couple of days, not use any guns, and do not to be in a remote area by yourself. Pending Studies at Discharge: No Stand-Alone Forms: My [facility] [employer], Smoking Cessation Medications and DC Order Prescriptions: New levetiracetam 500 mg tablet 500 mg PO BID 30 Days Qty: 60 RF: 0 Continued metformin 500 mg Tablet 500 mg PO BID RF: 0 simvastatin 80 mg Tablet 80 mg PO HS RF: 0 aspirin [Aspirin Low Dose] 81 mg Tablet,Delayed Release (Dr/Ec) 81 mg PO DAILY RF: 0 lisinopril-hydrochlorothiazide 20-25 mg Tablet 1 tab PO DAILY RF: 0 ropinirole 5 mg Tablet 5 mg PO DIRECTED RF: 0 Glucosamine Chondroitin 550-30-1 mg Capsule 0 cap PO BID RF: 0 omeprazole 20 mg Capsule,Delayed Release(Dr/Ec) 20 mg PO BID RF: 0 Discharge Orders: Discharge Order (Routine); Ordered 05/19/19 Ordered By: Anthony Reinoso Admission Data Admit Date/Time: 05/18/19 13:49 Attending Provider: Anthony Reinoso Admit Provider: Jeovanny Mensah Primary Care Provider: PCP,NO Other Providers: Jeovanny Mensah ; Vanessa Trevino Other Interventions: Discharge Summary Assessment (RN) Last Done: 05/19/19 15:20 DC Date/Time DO NOT enter until pt leaves facility: 05/19/19 16:33
[2019-05-20 05:44] LABS: Estimated Average Glucose 140 mg/dl; Hemoglobin A1C 6.5 % (4.5-5.6)
== END 2019-05-19 16:33 | disposition home or self-care (01) | DRG 101 ==
LOC: ED 11:53 → 2S 13:49